=== PATIENT | male | born 1990 | race Caucasian/White ===

== ENCOUNTER 2017-03-26 11:52 | Emergency (ER) | payer SELFPAY ==
[2017-03-26 11:56] VITALS: BP 138/93; PULSE 107; RESP 16; TEMP 98.7; O2SAT 100
[2017-03-26 11:57] VITALS: BMI 26.6
[2017-03-26] MEDS ORDERED: Naproxen 500 MG TAB PO STA (13:00)
[2017-03-26] MEDS ORDERED: Naproxen 500 MG TAB PO ONE (13:04)
--- NOTE | 2017-03-26 13:59 | RAD ---
PROCEDURE: Radiographs of the Lumbar Spine. HISTORY: Back pain COMPARISON: No prior. FINDINGS: BONES: There is normal alignment of the lumbar vertebral bodies. There is normal lumbar lordosis. There is no acute fracture, spondylolysis or spondylolisthesis. DISC SPACES: The disc heights are maintained. OTHER FINDINGS: No pathologic soft tissue calcifications. Both sacroiliac joints are normal. IMPRESSION: No acute fracture, spondylolysis or spondylolisthesis.
--- NOTE | 2017-03-26 14:00 | RAD ---
HISTORY: Back pain COMPARISON: No prior. FINDINGS: BONES: There is normal alignment of the thoracic vertebral bodies. There is normal thoracic kyphosis. There is no acute fracture or bone destruction. Bone mineralization is normal. DISC SPACES: Normal. SOFT TISSUES: Normal. OTHER FINDINGS: None. IMPRESSION: Normal examination.
--- NOTE | 2017-03-26 14:09 | ED PDOC ---
HPI: Back Time Seen by Provider: 03/26/17 12:46 Chief Complaint (Nursing): Back Pain History Per: Patient History/Exam Limitations: no limitations Additional Complaint(s): 26-year-old male complaining three-month history of intermittent right sided back pain, worse with certain movements, reports no history of trauma or injury. Otherwise: (-) chest pain, (-) SOB, (-) abdominal pain, (-) urinary symptoms, (-) paresthesias, (-) weakness, (-) acute bowel or bladder dysfunction , (-) fever. Has history of prior back problem. Of note, patient states that he is from [place] and is currently visiting here. PMD in [place] Past Medical History Vital Signs: Last Vital Signs Temp 98.7 F 03/26/17 11:56 Pulse 107 H 03/26/17 11:56 Resp 16 03/26/17 11:56 BP 138/93 H 03/26/17 11:56 Pulse Ox 100 03/26/17 11:56 - Medical History PMH: No Chronic Diseases - Surgical History Surgical History: No Surg Hx - Family History Family History: States: Unknown Family Hx - Social History Current smoker - smoking cessation education provided: Yes Alcohol: Occasional - Home Medications Home Medications: Ambulatory Orders Medication Instructions Recorded Cyclobenzaprine [Cyclobenzaprine 10 mg PO TID PRN #15 tab 03/26/17 HCl] Meloxicam [Mobic] 15 mg PO DAILY #20 tab 03/26/17 - Allergies Allergies/Adverse Reactions: Allergies Allergy/AdvReac Type Severity Reaction Status Date / Time No Known Allergies Allergy Verified 03/26/17 12:53 Review of Systems Constitutional: Negative for: Fever, Chills, Weakness, Malaise Cardiovascular: Negative for: Chest Pain, Palpitations, Orthopnea Respiratory: Negative for: Cough, Shortness of Breath, Hemoptysis Gastrointestinal: Negative for: Nausea, Vomiting, Abdominal Pain Genitourinary Male: Negative for: Dysuria, Frequency, Hematuria Musculoskeletal: Positive for: Back Pain. Negative for: Shoulder Pain, Hand Pain Skin: Negative for: Rash, Lesions, Jaundice Neurological: Negative for: Weakness, Numbness, Dizziness Physical Exam - Physical Exam Comments: GENERAL APPEARANCE: Patient is awake, alert, oriented x 3, in no acute distress. SKIN: Warm, dry; (-) cyanosis. EYES: (-) conjunctival pallor. ENMT: Mucous membranes moist. NECK: (-) tenderness, (-) stiffness, (-) lymphadenopathy. CHEST AND RESPIRATORY: (-) rales, (-) rhonchi, (-) wheezes; breath sounds equal bilaterally. HEART AND CARDIOVASCULAR: (-) irregularity; (-) murmur, (-) gallop. ABDOMEN AND GI: Soft; (-) tenderness; (-) palpable mass. BACK: (-) midline or paravertebral tenderness, (-) spasm, (-) direct bony tenderness, (-) deformity. Straight leg raising (-) bilaterally. EXTREMITIES: (-) deformity. Distal pulses good bilaterally. NEURO AND PSYCH: Mental status as above. Intact sensation bilaterally; normal strength in extension of the knees, plantar and dorsiflexion of the toes. DTRs symmetric. - ECG O2 Sat by Pulse Oximetry: 100 Medical Decision Making Medical Decision Makin-year-old male complaining three-month history of intermittent right sided back pain, no history of trauma. Plan: - XR T spine - XR L spine - Naprosyn PO XR T spine: no fracture, no abnormality, as read by PA XR L spine: no fracture, no abnormality, as read by PA Patient advised that official radiology read of XR is still pending and will call the patient if there is any discrepancy within 24 hours. X-ray results discussed with the patient. Based on history, exam and diagnostic results plan will be for outpatient follow up with his pmd in [place]. Patient instructed to follow up with primary care physician in 1-2 days without fail. Advised to take medication as prescribed. Return to the emergency room at any time for any new or worsening symptoms. Patient states he fully agrees with and understands discharge instructions. States that he agrees with the plan and disposition. Verbalized and repeated discharge instructions and plan. I have given the patient opportunity to ask any additional questions. Disposition - Clinical Impression Clinical Impression: Back pain - Patient ED Disposition Is Patient to be Admitted: No Counseled Patient/Family Regarding: Studies Performed, Diagnosis, Need For Followup, Rx Given, Smoking Cessation - Disposition Disposition: Routine/Home Disposition Time: 14:07 Condition: STABLE Additional Instructions: Thank you for letting us take care of you today. You were treated for back pain. The emergency medical care you received today was directed at your acute symptoms. If you were prescribed any medication, please fill it and take as directed. It may take several days for your symptoms to resolve. Return to the Emergency Department if your symptoms worsen, do not improve, or if you have any other problems. Please contact your doctor in 2 days for re-evaluation and follow up. Bring any paperwork you were given at discharge with you along with any medications you are taking to your follow up visit. Our treatment cannot replace ongoing medical care by a primary care provider (PCP) outside of the emergency department. Thank you for allowing the [facility] team to be part of your care today. If you had an X-Ray : A Radiologist will review the ED reading if any change in treatment is needed we will contact you. Prescriptions: Cyclobenzaprine [Cyclobenzaprine HCl] 10 mg PO TID PRN #15 tab PRN Reason: Muscle Spasm Meloxicam [Mobic] 15 mg PO DAILY #20 tab Instructions: Back Pain (ED) Forms: [employer] (Faroese) Print Language: ALBANIAN
== END 2017-03-26 14:27 | disposition home or self-care (01) ==
LOC: H.ER 11:52
DX: M62.830 Muscle spasm of back (principal)